=== PATIENT | female | born 1945 | race Caucasian/White ===

== ENCOUNTER 2017-06-05 15:11 | Emergency (ER) | payer MEDICARE ==
[~2017-06-05 15:11] MED LIST changes: -MYCO500T28 PO; -MYCO500V
--- NOTE | 2017-06-05 15:12 | ER Report ---
History and Physical Time Seen By MD: 15:12 HPI/ROS CHIEF COMPLAINT: left hip pain after fall HISTORY OF PRESENT ILLNESS: PT has hx of balance issues that occurred after having back surgery and ankle fracture. She uses a walker to help with her balance however her walker does not fit into her bathroom. Pt stepped out of her shower and was initially okay but when she reached for a towel she lost her balance and fell onto her left hip. Immedite pain. Pt crawled to get to phone to get help. PT did not hit her head. no loc. c/o of pain on left hip and down leg if she moves the left hip. no numbness. REVIEW OF SYSTEMS: Constitutional: No fever, no chills. Eyes: No discharge. ENT: No sore throat. Cardiovascular: No chest pain, no palpitations. Respiratory: No cough, no shortness of breath. Gastrointestinal: No abdominal pain, no vomiting. Genitourinary: No hematuria. Musculoskeletal: + chronic back pain, + left hip pain Skin: No rashes. Neurological: No headache. Allergies: Coded Allergies: Sulfa (Sulfonamide Antibiotics) (Verified Allergy, Unknown, RASH, 05/21/14) codeine (Verified Adverse Reaction, Unknown, NAUSEA/VOMITING, 05/21/14) Home Meds Active Scripts Prednisone (PREDNISONE) 20 Mg Tablet, 20 MG PO TID, #9 Prov:KWASI OBRIEN DO 05/21/14 Reported Medications Gabapentin (GABAPENTIN) 300 Mg Capsule, 300 MG PO TID, #180 05/21/14 Pravastatin Sodium (PRAVASTATIN SODIUM) 20 Mg Tablet, 20 MG PO DAILY, #30 05/21/14 Triamterene/Hydrochlorothiazid (TRIAMTERENE-HCTZ 37.5-25 MG TB) 1 Each Tablet, 1 TAB PO DAILY, #30 05/21/14 Metoprolol Succinate (METOPROLOL SUCCINATE) 50 Mg Tab.er.24h, 50 MG PO BID, #60 05/21/14 Folic Acid (FOLIC ACID) 0.4 Mg Tablet, 0.4 MG PO QHS 11/26/12 Prednisone 5 Mg Tab (PREDNISONE 5 MG TAB) 5 Mg Tablet, 5 MG PO QDAY 11/26/12 Sertraline Hcl (SERTRALINE HCL) 25 Mg Tablet, 50 MG PO QHS 11/26/12 Mirtazapine (MIRTAZAPINE) 15 Mg Tab.rapdis, 15 MG PO QHS 11/26/12 Discontinued Reported Medications Methotrexate Sodium (METHOTREXATE) 2.5 Mg Tab.ds.pk, 12.5 MG PO QWK TAKES #5 OF THE TABLETS EVERY Wednesday11/26/12 Discontinued Scripts Levofloxacin 500 Mg Tab (LEVAQUIN 500 MG TAB) 500 Mg Tablet, 500 MG PO DAILY, # 10 Prov:KWASI OBRIEN DO 05/21/14 Albuterol Sul Hfa 90 Mcg 8 Gm (VENTOLIN HFA 90 MCG 8 GM) 8.5 Gm Hfa.aer.ad, 2 PUFF IH Q4-6H, #1 Prov:KWASI OBRIEN DO 05/21/14 Albuterol Sulfate (ALBUTEROL SULFATE) 2.5 Mg/0.5 Ml Vial.neb, 2.5 MG IH Q6H, #30 Prov:MICAHKWASI DO 05/21/14 Past Medical/Surgical History Pmhx: balance issues, Rheumatoid arthritis,htn, hyperlipid Pshx: ankle fx repair, back surgery Reviewed Nurses Notes: Yes Old Medical Records Reviewed: Yes Hx Smoking: Yes Smoking Status: Former Smoker Hx Alcohol Use: No Constitutional Vital Sign - Last 24 Hours 06/05/17 06/05/17 06/05/17 06/05/17 15:10 15:11 15:26 15:30 Temp 99.0 Pulse 56 56 57 Resp 16 12 B/P (MAP) 121/71 126/63 (84) Pulse Ox 94 93 96 O2 Delivery Nasal Cannula 06/05/17 06/05/17 06/05/17 06/05/17 15:41 15:56 16:00 16:11 Pulse 56 62 59 Resp 10 7 14 B/P (MAP) 118/63 (81) Pulse Ox 96 93 94 06/05/17 06/05/17 06/05/17 06/05/17 16:26 16:41 16:56 17:00 Pulse 59 54 54 Resp 10 8 9 B/P (MAP) ???/??? (1665) Pulse Ox 81 93 100 Physical Exam General Appearance: The patient is alert, has no immediate need for airway protection and no signs of toxicity. Eyes: Pupils equal and round no pallor or injection, EOMI ENT: no pharyngeal erythema or exudates, Mucous membranes are moist, TM are nl b/l Respiratory: There are no retractions, lungs are clear to auscultation. Cardiovascular: Regular rate and rhythm. pulses are equal and symmetrical Gastrointestinal: Abdomen is soft and non tender, no masses, bowel sounds normal, no guarding, no rigidity or rebound Neurological: Cranial nerves II-XII grossly intact, no sensory Skin: Warm and dry, no rashes. Musculoskeletal: Neck is supple non tender, no vertebral tenderness Extremities accept for left lower are nontender, non swollen and have full range of motion; LLE has palpable tenderness over trochanter with no leg shortening. DIFFERENTIAL DIAGNOSIS: After history and physical exam differential diagnosis was considered for pelvis fx; left hip dislocation; left hip fx Medical Decision Making Data Points Result Diagram: 06/05/17 1639 06/05/17 1639 Laboratory Hematology Test 06/05/17 16:39 Red Blood Count 5.16 M/uL (4.17-5.56) Mean Corpuscular Volume 90.5 fL (80.0-96.0) Mean Corpuscular Hemoglobin 30.3 pg (26.0-33.0) Mean Corpuscular Hemoglobin Concent 33.5 g/dL (32.0-36.0) Red Cell Distribution Width 14.9 % (11.5-14.5) Mean Platelet Volume 9.0 fL (7.2-11.1) Neutrophils (%) (Auto) 81.7 % (39.4-72.5) Lymphocytes (%) (Auto) 12.2 % (17.6-49.6) Monocytes (%) (Auto) 4.9 % (4.1-12.4) Eosinophils (%) (Auto) 0.6 % (0.4-6.7) Basophils (%) (Auto) 0.6 % (0.3-1.4) Nucleated RBC Relative Count (auto) 0.0 /100WBC Neutrophils # (Auto) 7.9 K/uL (2.0-7.4) Lymphocytes # (Auto) 1.2 K/uL (1.3-3.6) Monocytes # (Auto) 0.5 K/uL (0.3-1.0) Eosinophils # (Auto) 0.1 K/uL (0.0-0.5) Basophils # (Auto) 0.1 K/uL (0.0-0.1) Nucleated RBC Absolute Count (auto) 0.00 K/uL Prothrombin Time 13.5 seconds (12.0-14.4) Prothromb Time International Ratio 1.03 Activated Partial Thromboplast Time 29 seconds (23-35) Sodium Level 141 mmol/L (137-145) Potassium Level 3.8 mmol/L (3.5-5.0) Chloride Level 102 mmol/L (98-107) Carbon Dioxide Level 28 mmol/L (22-31) Blood Urea Nitrogen 14 mg/dl (7-18) Creatinine 0.80 mg/dl (0.52-1.04) Glomerular Filtration Rate Calc > 60.0 Random Glucose 75 mg/dl (75-110) Calcium Level 8.6 mg/dl (8.4-10.2) Total Bilirubin 0.4 mg/dl (0.2-1.3) Aspartate Amino Transf (AST/SGOT) 20 U/L (0-35) Alanine Aminotransferase (ALT/SGPT) 36 U/L (0-56) Alkaline Phosphatase 93 U/L (0-126) Total Protein 5.7 gm/dl (6.3-8.2) Albumin 3.3 g/dl (3.5-5.0) Chemistry Test 06/05/17 16:39 White Blood Count 9.7 k/uL (4.5-11.0) Red Blood Count 5.16 M/uL (4.17-5.56) Hemoglobin 15.6 g/dL (12.0-16.0) Hematocrit 46.7 % (34.0-47.0) Mean Corpuscular Volume 90.5 fL (80.0-96.0) Mean Corpuscular Hemoglobin 30.3 pg (26.0-33.0) Mean Corpuscular Hemoglobin Concent 33.5 g/dL (32.0-36.0) Red Cell Distribution Width 14.9 % (11.5-14.5) Platelet Count 147 K/uL (150-450) Mean Platelet Volume 9.0 fL (7.2-11.1) Neutrophils (%) (Auto) 81.7 % (39.4-72.5) Lymphocytes (%) (Auto) 12.2 % (17.6-49.6) Monocytes (%) (Auto) 4.9 % (4.1-12.4) Eosinophils (%) (Auto) 0.6 % (0.4-6.7) Basophils (%) (Auto) 0.6 % (0.3-1.4) Nucleated RBC Relative Count (auto) 0.0 /100WBC Neutrophils # (Auto) 7.9 K/uL (2.0-7.4) Lymphocytes # (Auto) 1.2 K/uL (1.3-3.6) Monocytes # (Auto) 0.5 K/uL (0.3-1.0) Eosinophils # (Auto) 0.1 K/uL (0.0-0.5) Basophils # (Auto) 0.1 K/uL (0.0-0.1) Nucleated RBC Absolute Count (auto) 0.00 K/uL Prothrombin Time 13.5 seconds (12.0-14.4) Prothromb Time International Ratio 1.03 Activated Partial Thromboplast Time 29 seconds (23-35) Glomerular Filtration Rate Calc > 60.0 Calcium Level 8.6 mg/dl (8.4-10.2) Total Bilirubin 0.4 mg/dl (0.2-1.3) Aspartate Amino Transf (AST/SGOT) 20 U/L (0-35) Alanine Aminotransferase (ALT/SGPT) 36 U/L (0-56) Alkaline Phosphatase 93 U/L (0-126) Total Protein 5.7 gm/dl (6.3-8.2) Albumin 3.3 g/dl (3.5-5.0) Coagulation Test 06/05/17 16:39 Prothrombin Time 13.5 seconds Prothromb Time International Ratio 1.03 Activated Partial Thromboplast Time 29 seconds EKG/Imaging EKG Interpretation sinus sam @ 50 with first degree av block; low voltage Imaging femoral neck fx ED Course/Re-evaluation Clinical Indication for ER IV: IV Access ED Course 06/05/2017 4:51:16 pm Discussed with pt her hip fx. pt refusing admission to [facility] and states she will only have surgery at [facility] in [place]. Pt has had multiple back, shoulder and knee surgeries and all in [place]. Will give [facility] a call once we have pts labs. 06/05/2017 5:09:12 pm page out to [facility] 06/05/2017 5:34:37 pm Transfer center at [facility] called and directed me to the ED to give report. Spoke with Dr. Messina, emergency room physician, at [facility]. He has accepted patient to be sent to the ED due to both trauma and orthopedics are in the OR. Transfer center and Dr. Messina state we can start the process for transfer. WIll send copies of imaging and labs. Decision to Disposition Date: Jun 05, 2017 Decision to Disposition Time: 17:34 Depart Departure Latest Vital Signs Vital Signs Date Time Temp Pulse Resp B/P (MAP) Pulse Ox O2 Delivery O2 Flow Rate FiO2 06/05/17 17:00 ???/??? (1665) 06/05/17 16:56 54 9 100 06/05/17 15:10 99.0 Nasal Cannula Impression: Primary Impression: Femoral neck fracture Condition: Condition Unchanged Disposition: XFER TO [facility]UTE [facility] Referrals: MADI FORBESP (PCP) Problem Qualifiers Primary Impression: Femoral neck fracture Encounter type: initial encounter Fracture type: closed Laterality: left Qualified Codes: S72.002A - Fracture of unspecified part of neck of left femur , initial encounter for closed fracture LAURA DAMICO DO Jun 05, 2017 15:12
[2017-06-05] MEDS ORDERED: fentaNYL CITR 100 MCG/2 ML AMP IVP ONE ×2 (15:30→17:45)
--- NOTE | 2017-06-05 16:39 | RADIOLOGY IMAGING REPORT ---
FACILITY: [facility] PATIENT NAME: Janet Vicente : 1945 MR: [id number] V: [id number] EXAM DATE: ORDERING PHYSICIAN: LAURA DAMICO TECHNOLOGIST: Location: [facility] [place] Patient: Janet Vicente : 1945 Visit/Account:[id number] Date of Sevice: 06/05/2017 HIP LEFT Indication: Left hip pain after fall in bathroom. Comparison: None available Findings: AP view the pelvis and lateral view of the left hip. There is a left femoral neck fracture with minim al displacement. The femoral head is still situated in the acetabulum. No other indication of fractur e. No dislocation. The right hip is intact. Mild degenerative change seen in the lumbar spine. No bon y lesions. Soft tissues are unremarkable. Electronic device overlies the left ilium. IMPRESSION: 1. Left femoral neck fracture Report Dictated By: Freddy Hooks at 06/05/2017 4:33 PM Report E-Signed By: Freddy Hooks at 06/05/2017 4:36 PM WSN:[id number]
[2017-06-05 16:49] LABS: PLATELET COUNT, AUTOMATED 147 K/uL (150-450)
[2017-06-05] MEDS ORDERED: ORPHENADRINE 60MG/2ML INJ IVP ONE (16:50)
[2017-06-05 17:05] LABS: INR 1.03
[2017-06-05] MEDS ORDERED: MYCO500V (17:44)
[2017-06-05] MEDS ORDERED: MYCO500T28 PO (17:44)
--- NOTE | 2017-06-05 17:48 | EKG ---
[place]AC[place] [facility] [place] PATIENT NAME: RORY VANCE : [id number] MR: [id number] V: [id number] EXAM DATE: ORDERING PHYSICIAN: LAURA DAMICO TECHNOLOGIST: MARCO Newman Reason : TRAUMA Blood Pressure : / mmHG Vent. Rate : 051 BPM Atrial Rate : 051 BPM P-R Int : 234 ms QRS Dur : 082 ms QT Int : 434 ms P-R-T Axes : 061 021 050 degrees QTc Int : 400 ms Sinus bradycardia with 1st degree AV block Low voltage QRS Cannot rule out Anterior infarct , age undetermined Abnormal ECG When compared with ECG of 24-APR-2016 09:59, premature ventricular complexes are no longer present Confirmed by KALIN RODRIGEZ ([id number]) on 06/05/2017 7:11:37 PM Referred By: GOPI Confirmed By:KALIN RODRIGEZ
--- NOTE | 2017-06-05 18:36 | RADIOLOGY IMAGING REPORT ---
FACILITY: [facility] PATIENT NAME: Janet Vicente : 1945 MR: [id number] V: [id number] EXAM DATE: ORDERING PHYSICIAN: LAURA DAMICO TECHNOLOGIST: Location: [facility] Patient: Janet Vicente : 1945 Visit/Account:[id number] Date of Sevice: 06/05/2017 CHEST SINGLE AP Indication: Pre-op evaluation for hip fracture. Comparison: 04/24/2016. Findings: Cardiomediastinal silhouette and pulmonary vessels within normal limits for the technique. There is no focal infiltrate or lobar consolidation. No pneumothorax or pleural effusion. No nodule. Chronic interstitial changes. No acute bony abnormality. Spinal cannulation leads are in p lace at the approximate T8 level. IMPRESSION: 1. No acute cardiopulmonary process. Report Dictated By: Freddy Hooks at 06/05/2017 6:31 PM Report E-Signed By: Freddy Hooks at 06/05/2017 6:32 PM WSN:[id number]
[2017-06-05 18:40] VITALS: BP 116/63
== END 2017-06-05 18:53 | disposition short-term general hospital (02) ==
LOC: ER 15:21
DX: S72.002A Fracture of unspecified part of neck of left femur, initial encounter for closed fracture (principal); W18.39XA Other fall on same level, initial encounter; Y92.002 Bathroom of unspecified non-institutional (private) residence as the place of occurrence of the external cause; R94.31 Abnormal electrocardiogram [ECG] [EKG]; I44.0 Atrioventricular block, first degree
CPT/HCPCS: 36415; 71045; 73502; 85025; 85610; 85730; 86850; 86900; 86901; 93005; 96374; 96375; 96376; 99284; J2360; J3010; 82040; 82247; 82310; 82374; 82435; 82565; 82947; 84075; 84132; 84155; 84295; 84450; 84460; 84520

== ENCOUNTER → 2017-06-05 | Outpatient (CLI) | payer MEDICARE ==
[~2017-06-05] MED LIST: ACE500 PO; ALB0.5 IH; ALBU8.5H12 IH; CYMBALTA PO; CYNBALTA OS; DUL20 PO; FOLI0.4T56 PO; GABA-549 PO; HYDR-2952 PO; LEVO-85 PO; METH2.5T63 PO; METO50TA19 PO; MIRT-27 PO; MYCO500T28 PO; MYCO500V; OXYC20TA86 PO; PER PO; PRAM1TAB22 PO; PRAV20TA66 PO; PRE5 PO; PRED20TA6 PO; SERT25TA90 PO; SLEEPING AID PO; TRIA-20 PO; WATER PILL PO
== END ==
LOC: AMB 14:24
PROVIDERS: ATTEND Nurse Practitioner
DX: M25.552 Pain in left hip (principal); W18.2XXA Fall in (into) shower or empty bathtub, initial encounter; Y92.022 Bathroom in mobile home as the place of occurrence of the external cause
CPT/HCPCS: A0425; A0433

== ENCOUNTER → 2017-09-29 | Outpatient (CLI) | payer MEDICARE ==
[~2017-09-29] MED LIST changes: +MYCO500T28 PO; +MYCO500V
[2017-09-29 13:42] LABS: PLATELET COUNT, AUTOMATED 195 K/uL (150-450)
== END ==
LOC: LAB 13:20
PROVIDERS: ATTEND Nurse Practitioner Psychiatric/Mental Health
DX: R19.7 Diarrhea, unspecified (principal); I10 Essential (primary) hypertension; E78.5 Hyperlipidemia, unspecified; R73.9 Hyperglycemia, unspecified
CPT/HCPCS: 36415; 82040; 82247; 82310; 82374; 82435; 82465; 82565; 82947; 83718; 84075; 84132; 84155; 84295; 84443; 84450; 84460; 84478; 84520; 85025; 86003

== ENCOUNTER 2017-11-24 10:30 | Outpatient (RCR) | payer MEDICARE ==
--- NOTE | 2017-08-30 16:48 | PT INITIAL EVALUATION ---
MEDICAL DIAGNOSIS: L AELXANDRO from fall at home TREATMENT DIAGNOSIS: Same, altered gait and balance DATE OF ONSET: 06/05/17 SUBJECTIVE: Janet Vicente presents to PT for altered gait, balance, weakness after L ALEXANDRO (06/06/17) for a femoral fracture from a fall at home in her bathroom (06/05/17). She's had limited mobility and gait before her fall but was able to stand independently while folding clothes, walk around in her mobile home without her rollator, which she relates she can't do now. Janet expresses a fear of falling. She relates her urinary and fecal incontinence has worsened since her fracture. 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 Pain location is low back. REHAB PROBLEM LIST: Impaired Bed Mobility, Mobility, Transfers, Balance, Gait Decreased Strength, Endurance, Function, ADL's PREVIOUS MEDICAL HISTORY: Two lumbar surgeries, 1990, 2003 (chronic LBP), L humeral fracture, R failed TSR, cervical fusion and re-fusion, legally blind, hysterectomy. 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 OBJECTIVE: Posture: R trunk shift, independent stance 10 seconds, heels 8" apart , mild trunk flexion, L longer leg by 1/2 inch. ROM: LE's WFL. Strength: L hip flexor 3/5, quad 4/5, B PF's 2/5. 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 Bed mobility with minimal trunk rolling and bridging due to trunk and LE weakness. Gait: Rollator, trunk shifted R, feet not passing each other or clearing the floor. Tinetti Gait and Balance Assessment 12, a high fall risk. Janet must hold onto items to turn L and R, stands eyes closed for 6 seconds before LOB. Balance: Double limb support, static stand 10 seconds on firm surface. ASSESSMENT: Janet Vicente presents with high fall risk from altered balance, weakness, fear, altered gait, weaker pelvic floor. She did well with core strengthening and hip strengthening exercise today. Her R trunk shift is different since the last time I worked with her in [facility] 2016. Short Term Goals 1 month: Janet stands 30 seconds folding clothes, stands independently to open fitting room doors. 2 months: Janet stands two minutes to fix a snack at home, ambulates independently from work desk to fitting room doors. 3 months: Janet cleans her bedroom, folds clothes at her work desk standing. is a moderate fall risk (Tinetti). Patient's Goals Lose fear of falling, return to work full duties standing, short ambulation and stand for a few minutes independently PLAN: Patient to be seen for Strengthening/condition, Spinal Stabilization, Stretching, Neuromuscular Re-ed, Gait Trg/Balance Trg, Home Exercise Program 3x/ Week for 3 months Thank you for this referral. If you have any questions, comments, or concerns about this report or plan, please contact me at . MARIZOLD
--- NOTE | 2017-09-20 16:17 | PT PLAN OF CARE ---
Physician: MARIELLE Mckeon Patient is being seen: 3x/week Therapist: Dora Joyce PT Medical Diagnosis: L ALEXANDRO from fall at home Treatment Diagnosis: Same, altered gait and balance Date of Onset: 06/05/17 Date of Initial Evaluation: 08/30/17 Date patient was last seen: 09/20/17 Number of treatments: 9 Number of cancellations/No shows: 0 INTERVENTIONS: Strengthening/condition GOALS: 1 month: Janet stands 30 seconds folding clothes, stands independently to open fitting room doors (both met). 2 months: Janet stands two minutes to fix a snack at home (progressing), ambulates independently from work desk to fitting room doors (not met). 3 months: Janet cleans her bedroom (progressing), folds clothes at her work desk standing (not met), is a moderate fall risk (Tinetti) (not met) . PATIENT'S GOAL: Lose fear of falling (not met), return to work full duties standing (progressing), short ambulation independently (not met) Patient Compliance: Excellent Prognosis: Excellent Reasons for continuing therapy: S: Janet relates she can stand 30 seconds to pull up her pants or open fitting room doors, is using her walker between the desk and fitting room. She's cleaning her room a bit. Posture: R trunk shift, independent stance 15 seconds, heels 8" apart, upright trunk, L longer leg by 1/2 inch. ROM: LE's WFL. Strength: L hip flexor 3/5. Gait/Balance: Rollator, leans R due to failed R TSR, feet almost passing each other, turns <4 seconds. Static stand with upright trunk now, 15 seconds. 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 Bed mobility independent. A/P: Janet has progressed wtih strengthening, and we'll advance to balance as well in the next month. If you agree, we'll continue at 3x/week to goals set. Thank you. MUKUL
--- NOTE | 2017-10-20 15:03 | PT PLAN OF CARE ---
Physician: MARIELLE Mckeon Patient is being seen: 3x/week Therapist: Droa Joyce PT Medical Diagnosis: L ALEXANDRO from fall at home Treatment Diagnosis: Same, altered gait and balance Date of Onset: 06/05/17 Date of Initial Evaluation: 08/30/17 Date patient was last seen: 10/20/17 Number of treatments: 19 Number of cancellations/No shows: 0 INTERVENTIONS: Strengthening/condition Spinal Stabilization Neuromuscular Re-ed Gait Trg/Balance Trg Home Exercise Program GOALS: 1 month: Janet stands 30 seconds folding clothes, stands independently to open fitting room doors (both met). 2 months: Janet stands two minutes to fix a snack at home (met), ambulates independently from work desk to fitting room doors (not met). 3 months: Janet cleans her bedroom (met), folds clothes at her work desk standing, is a moderate fall risk (Tinetti) (progressing). PATIENT'S GOAL: Lose fear of falling (not met), return to work full duties standing (progressing), short ambulation independently (not met). Patient Compliance: Excellent Prognosis: Excellent Reasons for continuing therapy: S: Janet relates she's standing to make snacks, isn't walking independently work desk to fitting room. 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 Posture: R trunk shift, independent stance 30 seconds, stands 2 minutes leaning on counter safely, heels 6" apart, upright trunk, L longer leg by 1/2 inch. Strength: L hip flexor 3+/5. Gait/balance: Janet can now ambulate with R elbow extended, still R shift, feet passing each other and clearing the floor 170 feet when focused on gait, otherwise she leans R on her R forearm. Double limb support, heels 6" apart, unsteady eyes shut, loses balance backward with push to chest. She's unable to turn 90 degrees independently due to weakness and balance. 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 Bed mobility with normal trunk rolling and bridging now. A/P: Janet Vicente is improving mobility, gait, strength and starting to improve balance. If you agree, we'll continue another month, 3x/week to goals set. Thank you. MUKUL
--- NOTE | 2017-11-12 13:14 | PT PLAN OF CARE ---
Physician: MARIELLE Mckeon Patient is being seen: 3x/week Therapist: Dora Joyce PT Medical Diagnosis: L ALEXANDRO from fall at home Treatment Diagnosis: Same, altered gait and balance Date of Onset: 06/05/17 Date of Initial Evaluation: 08/30/17 Date patient was last seen: 11/12/17 Number of treatments: 29 Number of cancellations/No shows: 0 INTERVENTIONS: Strengthening/condition Spinal Stabilization Neuromuscular Re-ed Gait Trg/Balance Trg Home Exercise Program GOALS: 1 month: Janet stands 30 seconds folding clothes, stands independently to open fitting room doors (both met). 2 months: Janet stands two minutes to fix a snack at home (met), ambulates independently from work desk to fitting room doors (not met). 3 months: Janet cleans her bedroom (met), folds clothes at her work desk standing (progressing), is a moderate fall risk (Tinetti) (not met). PATIENT'S GOAL: Lose fear of falling (not met), return to work full duties standing (standing, but less hours), short ambulation independently (not met). 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 She's had L hip and L SI pain with advancing hip strengthening in this last month (pain 10/10), so I pulled back on exercises and balance training until this pain subsided to 2/10. Posture: R trunk shift, independent stance 10 seconds, heels 8" apart, upright trunk, L longer leg by 1/2 inch. ROM: LE's WFL. Strength: L hip flexor now 4/5, quad 4+/5, B PF's 2/5. Gait/Balance: Tinetti Gait and Balance 17, a high fall risk, a 39% impairment. Janet now ambulates with feet passing each other, rollator. She's unable to turn independently due to minimal WS, fear. 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 Bed mobility with smooth trunk rolling R, slower L. A/P: Janet Vicente is improving gait, needs more standing and balance work. If you agree, we'll continue through November at 3x/week to work on these issues, to goals set. Thank you. MUKUL
== END 2017-11-28 ==
LOC: PT 10:30
PROVIDERS: ATTEND Nurse Practitioner Psychiatric/Mental Health
DX: Z47.1 Aftercare following joint replacement surgery (principal); Z96.642 Presence of left artificial hip joint; R26.89 Other abnormalities of gait and mobility; R53.1 Weakness; F40.298 Other specified phobia; M54.5 Low back pain; R32 Unspecified urinary incontinence; R15.9 Full incontinence of feces; Z98.1 Arthrodesis status
CPT/HCPCS: 97162

== ENCOUNTER → 2018-01-14 | Outpatient (CLI) | payer MEDICARE ==
[2018-01-14 12:10] LABS: INR 0.98
== END ==
LOC: LAB 11:40
PROVIDERS: ATTEND Neurological Surgery
DX: M50.121 Cervical disc disorder at C4-C5 level with radiculopathy (principal); R20.2 Paresthesia of skin
CPT/HCPCS: 36415; 82310; 82374; 82435; 82565; 82947; 84132; 84295; 84520; 85027; 85610; 85730

== ENCOUNTER 2018-01-26 10:45 | Outpatient (RCR) | payer MEDICARE ==
--- NOTE | 2017-11-29 11:15 | PT PLAN OF CARE ---
Physician: MARIELLE Mckeon 3 month Progress Note Patient is being seen: 3x/week Therapist: Dora Joyce PT Medical Diagnosis: L ALEXANDRO from fall at home Treatment Diagnosis: Same, altered gait and balance Date of Onset: 06/05/17 Date of Initial Evaluation: 08/30/17 Date patient was last seen: 11/29/17 Number of treatments: 33 Number of cancellations/No shows: [*] INTERVENTIONS: Strengthening/condition Spinal Stabilization Stretching Neuromuscular Re-ed Gait Trg/Balance Trg Home Exercise Program GOALS: 1 month: Janet stands 30 seconds folding clothes, stands independently to open fitting room doors (both met). 2 months: Janet stands two minutes to fix a snack at home (met), ambulates independently from work desk to fitting room doors (not met). 3 months: Janet cleans her bedroom (met), folds clothes at her work desk standing (progressing), is a moderate fall risk (Tinetti) (met). PATIENT'S GOAL: Lose fear of falling (not met), return to work full duties standing (standing, but less hours), short ambulation independently (not met). 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 LBP is still >2/10, so we're doing intermediate level exercise. O: Posture: R trunk shift, independent stance improved to 30 seconds, heels 6" apart, upright trunk, L longer leg by 1/2 inch. Strength: L hip flexor now 4+/5, quad remains 4+/5, B PF's 2/5. Gait/Balance: Tinetti Gait and Balance 22 now, a 21% impairment. Janet now ambulates with feet passing each other, with focus clear the floor, straight line of progression, rollator. She's unable to turn independently due to minimal WS, fear. 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 Bed mobility with smooth trunk rolling. A/P: Janet Vicente is improving gait, needs more standing and balance work. If you agree, we'll continue through November at 3x/week to work on these issues, to goals set. Thank you. MUKUL
--- NOTE | 2017-12-15 12:50 | PT PLAN OF CARE ---
Physician: MARIELLE Mckeon Patient is being seen: 2-3x/week Therapist: Dora Joyce, PT Medical Diagnosis: L ALEXANDRO from fall at home Treatment Diagnosis: Same, altered gait and balance Date of Onset: 06/05/17 Date of Initial Evaluation: 08/30/17 Date patient was last seen: 12/15/17 Number of treatments: 39 Number of cancellations/No shows: 0 INTERVENTIONS: Strengthening/condition Spinal Stabilization Stretching Neuromuscular Re-ed Gait Trg/Balance Trg Home Exercise Program GOALS: 1 month: Janet stands 30 seconds folding clothes, stands independently to open fitting room doors (both met). 2 months: Janet stands two minutes to fix a snack at home (met), ambulates independently from work desk to fitting room doors (progressing). 3 months: Janet cleans her bedroom (met), folds clothes at her work desk standing (met), is a moderate fall risk (Tinetti) (met). PATIENT'S GOAL: Lose fear of falling (not met), return to work full duties standing (standing, working 30 hours/week), short ambulation independently (not met). Patient Compliance: Excellent Prognosis: Excellent Reasons for continuing therapy: S: Janet relates she's standing at her desk at work to work with clothes, standing to make snacks, but isn't walking independently between the desk and fitting rooms at [facility] due to weakness and poor balance. Posture: R trunk shift, independent stance 30 seconds, heels 6" apart, mild trunk flexion, L longer leg by 1/2 inch. Strength: Improved L hip flexor 4-/5, quad remains 4/5, B PF's 2/5. Gait/Balance: Janet has advanced to a quad cane for CGA gait 10 feet, with feet not passing each other but just clear the floor. Tinetti Gait and Balance 19, now at risk for falls, not a high fall risk. She has stood 5 min. in PT with hands on parallel bar rails without sitting. 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 Bed mobility independent, improved rolling and bridging. A/P: Janet Vicente has improved gait, needs more balance work for short distance independent ambulation. If you agree, we'll work 2x/week through December to goals set. Thank you. MUKUL
--- NOTE | 2018-01-26 14:35 | PT PLAN OF CARE ---
Physician: MARIELLE Mckeon Patient is being seen: 2x/week Therapist: Dora Joyce PT Medical Diagnosis: L ALEXANDRO from fall at home Treatment Diagnosis: Same, altered gait and balance Date of Onset: 06/05/17 Date of Initial Evaluation: 08/30/17 Date patient was last seen: 01/26/18 Number of treatments: 47 Number of cancellations/No shows: 1 INTERVENTIONS: Strengthening/condition Spinal Stabilization Stretching Neuromuscular Re-ed Gait Trg/Balance Trg Home Exercise Program GOALS: 1 month: Janet stands 30 seconds folding clothes, stands independently to open fitting room doors (both met). 2 months: Janet stands two minutes to fix a snack at home (met), ambulates independently from work desk to fitting room doors (not met). 3 months: Janet cleans her bedroom (met), folds clothes at her work desk standing (met), is a moderate fall risk (Tinetti) (not met). PATIENT'S GOAL: Lose fear of falling (not met, discharged), return to work full duties standing (standing, working 30 hours/week), short ambulation independently (not met). Patient Compliance: Excellent Prognosis: Excellent Reasons for discontinuing hip therapy: S: Janet had an adverse reaction to a double dose of dye for her myelogram 01/17/18 or 01/18/18 and was hospitalized at [facility] for 5-6 days. She reports strong cramps R L-S/posterior hip affecting hip extension, ambulation. She reports her LE's are weaker in transfers and gait and standing time is now 30-60 seconds. Hip FOTO 72% impairment. Posture: R trunk shift, independent stance 10 seconds, heels 8" apart, upright trunk, L longer leg by 1/2 inch. ROM: LE's WFL. Strength: L hip flexor 4/5, quad 4-/5. Gait/Balance: Rollator gait now with shorter step length, leans R again. Tinetti Gait and Balance reduced to 16, a high fall risk. 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 Bed mobility with minimal trunk rolling again and no bridging due to R hip cramps. A/P: Janet Vicente has regressed in gait, strength and mobility. I need to DC hip PT due to this and hospitalization. She has an Rx for LBP and LE weakness from a [facility] hospitalist. Next visit, we'll begin LE weakness PT with a new ICD- 10 code. Thank you. MUKUL
== END 2018-01-26 18:00 | disposition home or self-care (01) ==
LOC: PT 10:45
PROVIDERS: ATTEND Nurse Practitioner Psychiatric/Mental Health
DX: Z47.1 Aftercare following joint replacement surgery (principal); Z96.642 Presence of left artificial hip joint; R26.89 Other abnormalities of gait and mobility; R53.1 Weakness; F40.298 Other specified phobia; M54.5 Low back pain; Y92.019 Unspecified place in single-family (private) house as the place of occurrence of the external cause; W19.XXXA Unspecified fall, initial encounter

== ENCOUNTER 2018-02-23 10:30 | Outpatient (RCR) | payer MEDICARE ==
--- NOTE | 2018-01-31 13:25 | PT INITIAL EVALUATION ---
MEDICAL DIAGNOSIS: LBP and LE weakness TREATMENT DIAGNOSIS: Same DATE OF ONSET: 01/18/18 SUBJECTIVE: Janet Vicente presents to PT for a flare of LBP and subsequent LE weakness after she was hospitalized at [facility] 01/18/18 for an adverse reaction to contrast dye during a myelogram there. She finished PT here for her L ALEXANDRO she had after a fall at home 06/05/17. Janet uses a rollator for ambulation and has a spinal stimulator she uses. Oswestry Disability Index 58% impairment. Janet would like to return to her prior level of LBP, 3/ first thing in the morning, 5/10 at the end of her day. She feels her LE's were imp[roving in strength until the cold weather system we have today, and now sit<>stand transfers, gait are difficult due to pain and LE weakness.. . 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 Pain scale is 7 on a ten point pain scale. Pain is worse with standing, walking, transfers and better with Aleve. 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 Ambulates with 4WW, no independent gait. OBJECTIVE: Posture: Short R LE by 1", R lumbar shift, L thoracic scoliosis, forward head, heels 8" apart. ROM: AROM lumbar spine 75% flexion, reducing pain, 25% extension, increases pain. L hip PROM flexion 120 deg, IR 25 deg., ER 40 degrees. B knee extension 0 degrees. R shoulder AROM 5 deg. flexion. Strength: Hip abductors, quads 4+/5, hamstrings 5-.5, ankle DF 4/5 B. Special Tests: Negative SLR, B, for radicular symptoms, tight L hamstrings, 60 degrees. Mobility: Sit to semi-recumbent (breathing-obesity) with difficulty lifting R LE. Janet had been able to do independent transfers before her hospitalization. Semi-recumbent to sit with min. assist to R hand. Gait: 4WW, leans on R forearm (shoulder weakness), feet don't pass each other or clear the floor. Balance: Double limb support. Steady standing 10 seconds (had been 30 seconds). ASSESSMENT: Janet Vicente has flared LBP, LE stiffness after a brief hospitalization. Her strength is doing well, so I feel she needs more core strengthening and LE stretching. If you agree, we'll work on this, a some balance work also. She had less LE pain after Nu-step and core exercise. Short Term Goals One month: Janet reports her LBP has returned to 5/10 at the end of her day, she transfers without R LE difficulty, stands 30 to 60 seconds with steady balance. Patient's Goals Return to prior level of LBP, LE's not stiff. PLAN: Patient to be seen for Strengthening/condition Ice/Heat Range of Motion Spinal Stabilization Stretching Neuromuscular Re-ed Electrical Stim Gait Trg/Balance Trg Home Exercise Program 2x/Week for 4 Weeks Thank you for this referral. If you have any questions, comments, or concerns about this report or plan, please contact me at . MTDD
--- NOTE | 2018-02-23 18:03 | PT PLAN OF CARE ---
Physician: MARIELLE Mckeon Patient is being seen: 2x/week Therapist: Doar Joyce PT Medical Diagnosis: LBP and LE weakness Treatment Diagnosis: Same Date of Onset: 01/18/18 Date of Initial Evaluation: 01/31/18 Date patient was last seen: 02/23/18 Number of treatments: 8 Number of cancellations/No shows: 0 INTERVENTIONS: Spinal Stabilization, Strengthening/condition, Home Exercise Program GOALS: One month: Janet reports her LBP has returned to 5/10 at the end of her day (not met), she transfers without R LE difficulty (met), stands 30 to 60 seconds with steady balance (met). PATIENT'S GOAL: Return to prior level of LBP (not met), LE's not stiff (met). Patient Compliance: Excellent Prognosis: Excellent Reasons for discontinuing therapy: S: Janet reports her R LE is stronger, L hip is now aching and LBP is still strong, 7/10 at the end of her work day. Oswestry Disability Index worsened to 55% Posture: Short R LE by 1", R lumbar shift, L thoracic scoliosis, forward head, heels 8" apart. ROM: AROM lumbar spine WNL flexion, 50% extension, increases pain. Strength: Improved: Quads 5-/5, hamstrings R 5-/5 L 5/5, ankle DF 5-/5 B. Gait: Janet sometimes ambulates with B elbow extension, feet not passing each other but clear the floor, often leaning on R forearm due to R shoulder C5/6 weakness. Special Tests: Negative SLR, B, for radicular symptoms, tight L hamstrings, 60 degrees. Mobility: Sit to supine with R LE independent lift to table, difficulty with L LE lifting. Supine or semi-recumbent to sit with min. assist to R hand. A/P: Janet Vicente has improved LE strength but continues with strong lumbar pain. She sees Dr. Wiley March 02 about this pain. For now, I'll DC PT to HEP, goals maximized. Thank you. MUKUL
== END 2018-02-23 18:00 | disposition home or self-care (01) ==
LOC: PT 10:30
PROVIDERS: ATTEND Nurse Practitioner Psychiatric/Mental Health
DX: M54.5 Low back pain (principal); M62.81 Muscle weakness (generalized); Z96.642 Presence of left artificial hip joint; Z96.653 Presence of artificial knee joint, bilateral; Z98.1 Arthrodesis status
CPT/HCPCS: 97162

== ENCOUNTER → 2018-03-10 | Outpatient (CLI) | payer MEDICARE ==
[2018-03-10 12:34] LABS: PLATELET COUNT, AUTOMATED 179 K/uL (150-450)
[2018-03-10 12:43] LABS: INR 0.98
--- NOTE | 2018-03-10 13:45 | EKG ---
FACILITY: [facility] - [place] PATIENT NAME: RORY VANCE : [id number] MR: [id number] V: [id number] EXAM DATE: ORDERING PHYSICIAN: MADI FORBES TECHNOLOGIST: BOB Newman Reason : Blood Pressure : / mmHG Vent. Rate : 056 BPM Atrial Rate : 056 BPM P-R Int : 228 ms QRS Dur : 088 ms QT Int : 426 ms P-R-T Axes : 058 020 052 degrees QTc Int : 411 ms Sinus bradycardia with 1st degree AV block Possible left atrial enlargement Poor R wave progression anteriorly Confirmed by ZACHARY NAGEL ([id number]) on 03/10/2018 8:03:51 PM Referred By: Confirmed By:ZACHARY NAGEL
--- NOTE | 2018-03-10 15:57 | RADIOLOGY IMAGING REPORT ---
FACILITY: [facility] PATIENT NAME: Janet Vicente : 1945 MR: [id number] V: [id number] EXAM DATE: ORDERING PHYSICIAN: MADI FORBES TECHNOLOGIST: Location: [facility] [place] Patient: Janet Vicente : 1945 Visit/Account:[id number] Date of Sevice: 03/10/2018 Exam type: CHEST PA AND LAT History: Shortness of breath, preop Comparison: June 05, 2017 Findings: Progressive There is no evidence of acute appearing infiltrates, pleural effusions or overt pulmonary edema. Cardiac silhouette is enlarged but unchanged. There is ectasia the thoracic aorta . There is a severe compression fracture in the lower thoracic spine appears to been present on a pr ior chest from May 21, 2014. Spinal stimulator projects over the posterior aspect of the thoracic s pine. There are postsurgical changes of both shoulders. Postsurgical changes also noted in the lowe r cervical spine. IMPRESSION: 1. No acute cardiac pulmonary process is seen Report Dictated By: Sarah Benson MD at 03/10/2018 3:49 PM Report E-Signed By: Sarah Benson MD at 03/10/2018 3:51 PM WSN:POOL
== END ==
LOC: RAD 11:54
PROVIDERS: ATTEND Nurse Practitioner Psychiatric/Mental Health
DX: R06.02 Shortness of breath (principal); R73.9 Hyperglycemia, unspecified; Z51.81 Encounter for therapeutic drug level monitoring; I10 Essential (primary) hypertension; G62.9 Polyneuropathy, unspecified
CPT/HCPCS: 36415; 71046; 81001; 82040; 82247; 82310; 82374; 82435; 82565; 82947; 84075; 84132; 84155; 84295; 84450; 84460; 84520; 85025; 85610; 85730; 93005

== ENCOUNTER → 2018-06-10 | Outpatient (CLI) | payer MEDICARE ==
[~2018-06-10] MED LIST changes: -MIRT-27 PO; +MIRT15TA11 PO
--- NOTE | 2018-06-10 14:30 | RADIOLOGY IMAGING REPORT ---
FACILITY: [facility] - [place] PATIENT NAME: Janet Vicente : 1945 MR: [id number] V: [id number] EXAM DATE: ORDERING PHYSICIAN: KARYN NAVARRETE TECHNOLOGIST: Location: [facility] [place] Patient: Janet Vicente : 1945 Visit/Account:[id number] Date of Sevice: 06/10/2018 US VENOUS LOWER EXT LT US VENOUS LOWER EXT LT EXAMINATION: Unilateral lower extremity deep vein duplex Doppler ultrasound Additional Pertinent history: Edema left lower extremity COMPARISON STUDIES: none FINDINGS: Grayscale compression, duplex and color Doppler interrogation of the left lower extremity deep veins from common femoral vein to proximal calf was performed. The greater saphenous vein was evaluated usi ng similar technique. Common femoral vein negative Femoral vein negative Deep femoral vein - negative Popliteal vein negative Visualized deep calf veins negative Greater saphenous vein in the proximal thigh negative Popliteal fossa: negative IMPRESSION: 1. Negative left leg for DVT. Report Dictated By: Jeison Vila MD at 06/10/2018 2:25 PM Report E-Signed By: Jeison Vila MD at 06/10/2018 2:27 PM WSN:[id number]
== END ==
LOC: US 13:37
PROVIDERS: ATTEND Nurse Practitioner Family
DX: R60.0 Localized edema (principal)

== ENCOUNTER → 2018-06-10 | Outpatient (REF) | payer MEDICARE ==
[2018-06-10 12:56] LABS: PLATELET COUNT, AUTOMATED 176 K/uL (150-450)
== END ==
PROVIDERS: ATTEND Nurse Practitioner Family
DX: R60.9 Edema, unspecified (principal)
CPT/HCPCS: 82040; 82247; 82310; 82374; 82435; 82565; 82947; 84075; 84132; 84155; 84295; 84450; 84460; 84520; 85025; 85379

== ENCOUNTER 2018-07-25 09:45 | Outpatient (RCR) | payer MEDICARE ==
--- NOTE | 2018-04-27 12:58 | PT INITIAL EVALUATION ---
MEDICAL DIAGNOSIS: s/p C3/4 ACDF, C4/5 hardware removal, persistent weakness R>L TREATMENT DIAGNOSIS: Same DATE OF ONSET: 04/07/18 SUBJECTIVE: Janet Vicente presents to PT for rehabilitation of her cervical region, B UE weakness following her ACDF C3/4 fusion, C4/5 hardware removal (ACDF 06/02/16). She would like to RTW, increase her crocheting time from 2 to 4 hours and improve her mobility. Pain location is forehead LINCOLN, posterior cervical and described as ache. Pain scale is 3 on a ten point pain scale for LINCOLN constant, 1/10 at the posterior cervical region, intermittent. 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 OBJECTIVE: Posture: Short R LE by 1", R lumbar shift, L thoracic scoliosis, forward head, heels 8" apart. ROM: AROM cervical spine 50% rotation B, flexion and extension. Shoulders AROM: R ext. 30 deg., 0 deg. flexion, abduction, L flexion 150 deg., abd. 85 deg., ER 45 deg., IR T12. AROM: R flexion 40 deg., sup/pron. WNL/WNL, wrist ext 60 deg., flexion WNL, L all WNL. R fingers extend ~75% except 3rd finger 25%. Strength: Solvent Plant Operator strength, Adi dynamometer, 2nd slot: R 20, 21, 22#, L 30, 34, 29#. Shoulder elevators 4-/5 L, 4/5 R. Palpation: Tight cervical and shoulder muscles, connective tissue: Special Tests: DTR's 0/3 biceps, BR, 1/3 triceps, L 1/3 throughout. Gait: 4WW, leans on R forearm due to shoulder and elbow weakness, feet don't pass each other or clear the floor. Balance: Double limb support. ASSESSMENT: Janet Vicente presents with improved L shoulder AROM since I worked with her last (discharged 02/23/18), has less cervical pain, less intense headaches and now has some R elbow and wrist extensor AROM. Janet's an excellent candidate to return to work, reduce LINCOLN and alleviate cervical pain, improve UE strength. She is started with an AROM HEP today. Short Term Goals/Patient's Goals One month: Janet rates LINCOLN 1-2/10, 4 days per week, crochets 3 hours, carries 5 lb. of clothes. Two months: RTW regular duties, lifting 10 lbs. of clothes,, crochets 4 hours, no cervical pain and LINCOLN 3 days per week. PLAN: Patient to be seen for Manual Therapy Strengthening/condition Ice/Heat Range of Motion Spinal Stabilization Stretching Neuromuscular Re-ed Electrical Stim Gait Trg/Balance Trg Home Exercise Program 2x/Week for 2 Months Thank you for this referral. If you have any questions, comments, or concerns about this report or plan, please contact me at . MUKUL
--- NOTE | 2018-06-08 12:03 | PT PLAN OF CARE ---
Physician: Dr. Dominick Wiley Patient is being seen: 2x/week Therapist: Dora Joyce, PT Medical Diagnosis: s/p C3/4 ACDF, C4/5 hardware removal, persistent weakness R>L Treatment Diagnosis: Same Date of Onset: 04/07/18 Date of Initial Evaluation: 04/27/18 Date patient was last seen: 06/08/18 Number of treatments: 10 Number of cancellations/No shows: 1 INTERVENTIONS: Strengthening/condition, Range of Motion, Home Exercise Program GOALS/PATIENT'S GOAL: One month: Janet rates LINCOLN 1-2/10, 4 days per week (progressing), crochets 3 hours (progressing), carries 5 lb. of clothes (not met). Two months: RTW regular duties (not met), lifting 10 lbs. of clothes (not met), crochets 4 hours (progressing), no cervical pain and LINCOLN 3 days per week (not met). Patient Compliance: Excellent Prognosis: Excellent Reasons for continuing therapy: S: Janet relates she can jose d 2 hours, isn't back to work yet due to weakness. She rates constant LINCOLN's 2/10. Neck Disability Index improved from 36% to 33%. O: ROM: AROM cervical spine remains 50% rotation B, flexion and extension. Shoulders AROM: R ext. 40 deg., 35 deg. flexion, 25 deg. abduction. R shoulder reverse scapulohumeral rhythm with AROM. Strength: Lining Setter strength, Aid dynamometer, 2nd slot: R 32, 32, 30#, L 39, 42, 41#. Palpation: Tight cervical and shoulder muscles, connective tissue A/P: Janet Vicente has improve ROM and strength, but isn't able to lift 10 lbs. for RTW yet. If you agree, we'll continue 2x/week 2 more months to goals set. Thank you. Physician's signature Date MTDD
--- NOTE | 2018-06-23 13:10 | PT INITIAL EVALUATION ---
MEDICAL DIAGNOSIS: Pressure ulcer of L) heel TREATMENT DIAGNOSIS: Stage 3 Pressure Injury of L) Lateral Heel DATE OF ONSET: 06/02/18 SUBJECTIVE: Pt presents today with pressure injury of the L) heel. Wound is open to air and actively draining into the pt's shoe. The patient reports that she has been seen 2 times over the past two weeks at Urgent Care and was referred to OP wound care and started on Doxycycline. The patient reports that she is unsure of when the wound first started secondary to lack of sensation from neuropathy, but that it was first visualized by her roommate 2 weeks ago. She believes that it is from "sliding my heel in bed". The patient reports compliance with abx use and keeps the wound covered with "a banadaid". REHAB PROBLEM LIST: Open wound PREVIOUS MEDICAL HISTORY: Neuropathy, 5 back surgeries, see EMR for full report OBJECTIVE: Sensation: Impaired secondary to neuropathy Wound Measurements: 2.5 cm L x 2.1 cm W x 0.2 cm D ASSESSMENT: Pt with large pressure injury on the L) lateral heel, wound is open to air upon pt's arrival. Wound demonstrates slough across middle of wound but with granulation tissue at border of wound. PT completed conservative, selective debridement of non-viable tissue and slough as well as periwound callous with tweezers and scissors to the depth of the subcutaneous tissue. Wound thoroughly cleansed with sterile saline and gauze and then treated with collagen with silver, covered with a silicone bordered dressing. PT instructed pt to maintain dressing, clean dry and intact until f/u visit in one week as well as the importance of routine foot inspection. Pt also instructed to aggressively offload the L) heel to facilitate wound healing, she may need differed foot wear as she regulary wears Croc sandals. Pt will benefit from skilled PT wound care in order to facilitate wound healing and minimize complications. Short Term Goals 1: Pt to maintain dressing clean, dry and intact in between visits. 2: Pt to effectively offload heel at all times. 3: Wound to demonstrate 100% granulation tissue with no s/s of infection. 4: Wound to demonstrate 100% closure. 5: Pt to receive education for proper foot care, and receive proper offloading shoes if needed. Patient's Goals: Wound healing PLAN: The patient will be seen for skilled PT wound care to include conservative sharps debridement as well as advanced wound care product selection and application, 1x/Week for up to 90 days, Thank you for this referral. If you have any questions, comments, or concerns about this report or plan, please contact me at . Teressa Barney, PT, DPT [facility]
--- NOTE | 2018-07-13 12:25 | PT PLAN OF CARE ---
Physician: Dr. Dominick Wiley Patient is being seen: 2x/week Therapist: Dora Joyce, PT Medical Diagnosis: s/p C3/4 ACDF, remove C4/5 hardware Treatment Diagnosis: Stage 3 Pressure Injury of L) Lateral Heel Date of Onset: 06/02/18 Date of Initial Evaluation: 06/23/18 Date patient was last seen: 07/13/18 Number of treatments: 20 Number of cancellations/No shows: 0 INTERVENTIONS: Strengthening/condition, Range of Motion, Home Exercise Program GOALS/PATIENT'S GOAL: One month: Janet rates LINCOLN 1-2/10, 4 days per week (progressing), crochets 3 hours (met). Two months: RTW regular duties (retired), crochets 4 hours, no cervical pain and LINCOLN 3 days per week (not met). Patient Compliance: Excellent Prognosis: Good Reasons for continuing therapy: S: Janet reports her constant headaches are 2/10 and denies cervical pain except for lifting, prolonged housework. She's retired from [employer], can jose d an hour. Neck Disability Index improved from 33% to 18%. Janet reports she can now do R UE ER with arm at side to reach low, which she hadn't been able to before. O: ROM: AROM cervical spine 75% rotation B, flexion and 50% extension. R shoulder supine AROM improved to 50 deg. flexion, 75 deg. abduction (we've focused on R shoulder ROM). R biceps 1/5, triceps 3/5. Strength: Repacker strength, Adi dynamometer, 2nd slot: R 20, 18, 18#, L 40# x3 (tested after ROM exercises). A/P: Janet Vicente has done well with anti-gravity strengthening, with R biceps the weakest but scapular stabilizers and rotators improving strength. If you agree, we'll continue another 6 weeks, 2x/week to improve R C5/6 huitron muscle function. Thank you. Dr. Jose [facility]
== END 2018-07-26 ==
LOC: PT 09:45
PROVIDERS: ATTEND Physician Assistant Medical
DX: Z48.811 Encounter for surgical aftercare following surgery on the nervous system (principal); M62.81 Muscle weakness (generalized); Z98.1 Arthrodesis status; R51 Headache; Z96.653 Presence of artificial knee joint, bilateral; Z96.642 Presence of left artificial hip joint; L89.623 Pressure ulcer of left heel, stage 3
CPT/HCPCS: 97161; 97162

== ENCOUNTER 2018-10-20 10:15 | Outpatient (RCR) | payer MEDICARE ==
--- NOTE | 2018-07-27 11:01 | PT PLAN OF CARE ---
Physician: Dr. Dominick Wiley Patient is being seen: 2x/week Therapist: Dora Joyce, PT Medical Diagnosis: s/p C3/4 ACDF, remove C4/5 hardware Treatment Diagnosis: Same Date of Onset: 06/02/18 Date of Initial Evaluation: 06/23/18 Date patient was last seen: 07/27/18 Number of treatments: 24 Number of cancellations/No shows: [*] INTERVENTIONS: AA/AROM R shoulder, B UE and cerv. strengthening, HEP GOALS/PATIENT'S GOAL: One month: Janet rates LINCOLN 1-2/10, 4 days per week (progressing), crochets 3 hours (met). Two months: RTW regular duties (retired), crochets 4 hours (met), no cervical pain (met) and LINCOLN 3 days per week (not met). 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 She's crocheting as much as she wants to. Neck Disability Index 20%, up 2% from last month. Janet reports she can now reach a lot to about waist high with her right hand. She's doing a lot of ROM exercises at home. O: ROM: AROM cervical spine 75% rotation B, flexion and 50% extension. R shoulder supine AROM improved to 70 deg. flexion, 90 deg. abduction (we've focused on R shoulder ROM) and reverse scapulohumeral rhythm is reduced. R biceps 1+/5, triceps 3+/5, both improved. A/P: Janet Vicente continues to do well with anti-gravity strengthening, with R biceps the weakest but scapular stabilizers and rotators improving strength. Her reaching function has improved. If you agree, we'll continue another 4 weeks, 2x/week to improve R C5/6 huitron muscle function. Thank you. Dr. Jose [facility]
--- NOTE | 2018-09-15 13:51 | NUR ---
This Physical Therapist or Refractory Worker was present for the entire physical therapy session directing the services, making the skilled judgement, and was not engaged in treating another patient or doing another task at the same time as the treatment session. Addendum: 09/15/18 at 1351 by NAGI GERMAIN PT Amended: Links added.
--- NOTE | 2018-09-27 13:21 | PT PLAN OF CARE ---
Physician: Dr. Dominick Wiley Patient is being seen: 2x/week Therapist: Dora Joyce, PT Medical Diagnosis: s/p C3/4 ACDF, remove C4/5 hardware Treatment Diagnosis: Same Date of Onset: 06/02/18 Date of Initial Evaluation: 06/23/18 Date patient was last seen: 09/21/18 Number of treatments: 34 Number of cancellations/No shows: 4 INTERVENTIONS: ROM/Strengthening, Home Exercise Program GOALS/PATIENT'S GOAL: One month: Janet rates LINCOLN 1-2/10, 4 days per week (progressing), crochets 3 hours (met). Two months: RTW regular duties (retired), crochets 4 hours (met), no cervical pain (met) and LINCOLN 3 days per week (not met). Patient Compliance: Excellent Prognosis: Good Reasons for continuing therapy: S: Janet reports she's improved her UE, cervical function except she still has daily frontal LINCOLN's, 2-5. Neck Disability Index is reduced to 33%, from 20% in July. 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 O: ROM: AROM cervical spine remains 50% rotation B, flexion and extension. Shoulders AROM: R ext. 30 deg., 45 deg. flexion, 30 deg. abduction. Strength: R biceps 2/5 now. Functional reach to 45 degrees flexion with reverse scapulohumeral rhythm to shoulder high. Gait: 4WW, leans on R forearm. A/P: Janet Vicente has made the gains I feel she can with her R C5/6 huitron muscles. If you agree, we'll finish the month of September at 2x/week working on cervical stretching and AROM to see if she can reduce her LINCOLN, then DC PT October 19 to HEP. Thank you. Dr. Dominick Wiley date MTDD
--- NOTE | 2018-10-19 12:58 | PT PLAN OF CARE ---
Physician: Dr. Dominick Wiley Patient is being seen: 2x/week Therapist: Dora Joyce, PT Medical Diagnosis: C3/4 ACDF, removal of C5/6 hardware Treatment Diagnosis: Stage 3 Pressure Injury of L) Lateral Heel Date of Onset: 06/02/18 Date of Initial Evaluation: 06/23/18 Date patient was last seen: 10/19/18 Number of treatments: 41 Number of cancellations/No shows: 4 INTERVENTIONS: Strengthening/condition, Range of Motion, Stretching, Home Exercise Program GOALS/PATIENT'S GOAL: One month: Janet rates LINCOLN 1-2/10, 4 days per week (not met), crochets 3 hours (met). Two months: RTW regular duties (retired), crochets 4 hours (met), no cervical pain (met) and LINCOLN 3 days per week (not met, more like 5-6 days/week). Patient Compliance: Excellent Prognosis: Good Reasons for discontinuing therapy: S: Janet reports LINCOLN's are 1-2/10 when they occur, almost daily. She's able to spend 5 hours sorting her household (recent move) including using her R UE. Neck Disability Index 29%. O: ROM: AROM cervical spine 75% rotation B, 50% sidebend, WFL flexion and extension. R SB and R rotation reduce/alleviate C1 pattern LINCOLN. Shoulders AROM: R ext. 30 deg., 45 deg. flexion, AAROM R shoulder flexion 145 degrees. Janet reaches to chest high with R UE. 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 A/P: Janet Vicente has improved her R C5 function as much as possible and has a HEP to address C1 pattern LINCOLN's. I'll DC PT to this HEP. Thank you. MUKUL
--- NOTE | 2018-10-27 11:25 | PT PLAN OF CARE ---
Physician: Dr. Dominick Wiley Patient is being seen: Janet Vicente Therapist: Julianna Eagle, PT, MPT, OMS Medical Diagnosis: Pressure ulcer of L) heel Treatment Diagnosis: Stage 3 Pressure Injury of L) Lateral Heel Date of Onset: 06/02/18 Date of Initial Evaluation: 06/23/18 Date patient was last seen: 10/27/18 Number of treatments: Number of cancellations/No shows: 0 INTERVENTIONS: skilled PT wound care to include conservative sharps debridement as well as advanced wound care product selection and application, 1x/Week for up to 90 days, GOALS: (Met) 1: Pt to maintain dressing clean, dry and intact in between visits. 2: Pt to effectively offload heel at all times. 3: Wound to demonstrate 100% granulation tissue with no s/s of infection. 4: Wound to demonstrate 100% closure. 5: Pt to receive education for proper foot care, and receive proper offloading shoes if needed. PATIENT'S GOAL: Wound healing Status of Patient's Goals: met Patient Compliance: Good overall Prognosis: Good Reasons for continuing therapy: None at this time, as wound demos full epithelialization and pt is more aware of strategies to off load this area to prevent pressure ulcer in the future. Thank you for this referral. If you have any questions, comments, or concerns about this report or plan, please contact me at . Julianna Eagle, PT, MPT, OMS [facility]
== END 2018-10-27 14:15 | disposition home or self-care (01) ==
LOC: PT 10:15
PROVIDERS: ATTEND Physician Assistant Medical
DX: Z48.811 Encounter for surgical aftercare following surgery on the nervous system (principal); M62.81 Muscle weakness (generalized); Z98.1 Arthrodesis status; R51 Headache; Z96.653 Presence of artificial knee joint, bilateral; Z96.642 Presence of left artificial hip joint; L89.623 Pressure ulcer of left heel, stage 3

== ENCOUNTER 2018-10-24 10:00 | Outpatient (RCR) | payer MEDICARE | END 2018-10-24 18:00 | disposition home or self-care (01) | LOC: PT 10:00 | PROVIDERS: ATTEND Nurse Practitioner Family | DX: Z02.9 Encounter for administrative examinations, unspecified (principal) ==